=== PATIENT | male | born 1990 | race Caucasian/White ===

== ENCOUNTER → 2017-03-19 | Outpatient (CLI) | payer OTHER ==
[~2017-03-19] MED LIST: ACET-1256 PO; CREAPOW7 PO; MULT-513 PO; OMEG10007 PO; PROT1POW PO; [UNRECOGNIZED DRUG - OTHER] PO; [UNRECOGNIZED DRUG - OTHER] PO
== END | disposition home or self-care (01) ==
LOC: C.LAB 04:05
DX: Z02.83 Encounter for blood-alcohol and blood-drug test (principal)

== ENCOUNTER 2017-05-26 21:40 | Emergency (ER) | payer OTHER ==
[~2017-05-26] VITALS: Ht 177.8 cm; Wt 120.7 kg
[~2017-05-26 21:40] MED LIST changes: -ACET-1256 PO
[2017-05-26 21:42] VITALS: TEMP 36.8; Ht 177.8 cm; Wt 120.7 kg
[2017-05-26] MEDS ORDERED: NAPROXEN 250 MG TAB PO STA (22:02)
[2017-05-26] MEDS ORDERED: ACET-1256 PO (22:14)
--- NOTE | 2017-05-26 22:22 | DIAGNOSTIC IMAGING REPORT ---
RIGHT KNEE 3 VIEWS CLINICAL HISTORY: 26 years-old Male presenting with pain, right Right. TECHNIQUE: Frontal, lateral, and sunrise views of the right knee were obtained. COMPARISON: None. FINDINGS: No acute fracture or malalignment. Knee joint effusion suspected. No degenerative change. IMPRESSION: No acute osseous injury of the right knee. Knee joint effusion. Electronically signed by: Robert Prince M.D. 05/26/2017 10:20 PM Dictated Date/Time: 05/26/2017 10:19 PM
[2017-05-26 22:38] VITALS: BP 128/74; PULSE 72; O2SAT 97
--- NOTE | 2017-05-26 22:44 | EMERGENCY ROOM VISIT NOTE ---
ED Visit Note First contact with patient: 21:59 CHIEF COMPLAINT: knee pain HISTORY OF PRESENT ILLNESS: This 26 yo patient presents to the emergency department with mother after sustaining an injury to the right knee the other night when he was drinking. Patient states is not sure exactly what happened but the pain started then. The patient denies any other injuries besides their knee. The patient complains of minimal medial swelling without bruising. There is pain medial aspect. They rate the pain as throbbing and 5/10. The patient states they are able to walk on it. No numbness or tingling. No previous injuries to this knee. No ankle, foot or hip pain. REVIEW OF SYSTEMS: A 6 system review of systems was completed with positives and pertinent negatives listed in the HPI. ALLERGIES: none MEDICATIONS: none PMH: none SOCIAL HISTORY: no drug use PHYSICAL EXAM: Vital Signs: Reviewed Nurse's notes, vital signs stable. GENERAL : pleasant male, no acute distress, but appears in pain, well-developed, well- nourished. MENTAL STATUS: Alert, oriented to person place and time, and cooperative. MUSCULOSKELETAL: The right knee is minimally swollen. There is no ecchymosis. There is minimal joint effusion present. The patient is tender MCL. There is no joint line tenderness. The patella not subluxate. Range of motion is intact. Strength of the quads and hamstrings is 5/5. Maria L's is neg. Loc's and Anterior Drawer tests are neg. There is no laxity with varus and valgus stressing. The foot and toes are warm and well-perfused. Dorsalis pedis pulse 2+. Sensation to pain and light touch is intact. Capillary refill less than 2 seconds. EMERGENCY DEPARTMENT COURSE: I examined the patient. X-rays of the right knee were reviewed by myself and read by radiology and reveal RIGHT KNEE 3 VIEWS CLINICAL HISTORY: 26 years-old Male presenting with pain, right Right. TECHNIQUE: Frontal, lateral, and sunrise views of the right knee were obtained. COMPARISON: None. FINDINGS: No acute fracture or malalignment. Knee joint effusion suspected. No degenerative change. IMPRESSION: No acute osseous injury of the right knee. Knee joint effusion. Electronically signed by: Robert Prince M.D. The patient has been walking on the leg with minimal difficulties. He did have minimal discomfort with overexertion and was advised to take it easy this week with his knee and if he is still symptomatic in one week and to follow-up with orthopedics or here in the ER sooner for severe pain, numbness, tingling, worsening signs or symptoms or as needed. The patient was discharged home in good condition. Differential diagnoses include sprain, strain, fracture, meniscal injury, dislocation, and other etiologies were considered. DIAGNOSIS: Right knee sprain DISCHARGE INSTRUCTIONS: As below Current/Historical Medications Scheduled PRN Acetaminophen (Tylenol), 1,000 MG PO Q6H PRN for Pain Allergies Coded Allergies: No Known Allergies (Unverified , 09/06/15) Vital Signs Date Time Temp Pulse Resp B/P (MAP) Pulse Ox O2 Delivery O2 Flow Rate FiO2 05/26/17 21:42 36.8 67 16 136/79 97 Room Air Medications Administered Medications (Trade) Dose Ordered Sig/Lito Route Start Time Stop Time Status Last Admin Dose Admin Naproxen (Naprosyn Tab) 500 mg NOW STAT PO 05/26/17 22:02 05/26/17 22:04 DC 05/26/17 22:11 500 MG Departure Information Impression Primary Impression: Sprain of knee Dispostion Home / Self-Care Condition GOOD Referrals No Doctor, Assigned (PCP) Eduardo Vasquez, Ozzie.O. Forms HOME CARE DOCUMENTATION FORM, IMPORTANT VISIT INFORMATION Patient Instructions [facility], ED Sprain Knee Additional Instructions Ibuprofen(Motrin, Advil) may be used for fever or pain. Use 600mg every six hours as needed. Take with food. Avoid using more than 2400mg in a 24 hour period. Do not use 2400mg per day for more than three consecutive days without physician direction. Prolonged inappropriate use can lead to stomach upset or ulcers. This medication can be taken if you need to drive, work, or perform activities which may be dangerous when taking narcotic pain medication. (AND/OR) Acetaminophen(Tylenol) may be used for fever or pain. Use 1000mg every six hours as needed. Avoid using more than 3000mg in a 24 hour period. This medication can be taken if you need to drive, work, or perform activities which may be dangerous when taking narcotic pain medication. Ice compresses for 20 minutes at a time four times daily for 2-3 days. Rest and elevate your injury. Continue current medications. Return to the ER immediately for any numbness, tingling, severe pain, extreme swelling in the extremity or as needed. Call Orthopedics in 5-7 days if symptoms persist to arrange follow up for your injury.
== END 2017-05-26 22:39 | disposition home or self-care (01) ==
LOC: C.EDB 21:42 → C.EDD 22:39
DX: S83.91XA Sprain of unspecified site of right knee, initial encounter (principal); X58.XXXA Exposure to other specified factors, initial encounter

== ENCOUNTER 2017-10-06 16:18 | Emergency (ER) | payer OTHER ==
[~2017-10-06] VITALS: Ht 177.8 cm; Wt 112.5 kg
[2017-10-06 16:26] VITALS: BP 127/74; PULSE 85; TEMP 36.7; O2SAT 95; Ht 177.8 cm; Wt 112.5 kg
--- NOTE | 2017-10-06 17:03 | DIAGNOSTIC IMAGING REPORT ---
R SHOULDER MIN 2 VIEWS ROUTINE HISTORY: 27 years-old Male right shoulder pain acute right shoulder pain COMPARISON: None available TECHNIQUE: 3 views of the right shoulder FINDINGS: There is no acute fracture, dislocation or significant degenerative changes. Imaged lung seay appear clear. IMPRESSION: No acute fracture or dislocation. The above report was generated using voice recognition software. It may contain grammatical, syntax or spelling errors. Electronically signed by: Wally Arnett M.D. 10/06/2017 5:02 PM Dictated Date/Time: 10/06/2017 5:00 PM
[2017-10-06] MEDS ORDERED: PRED20TA2 PO (17:56)
[2017-10-06] MEDS ORDERED: ACET-1256 PO (22:14)
--- NOTE | 2017-10-06 23:17 | EMERGENCY ROOM VISIT NOTE ---
ED Visit Note First contact with patient: 16:31 CHIEF COMPLAINT: Shoulder pain HISTORY OF PRESENT ILLNESS: This 27-year-old male patient presents to the emergency department complaining of pain in the right shoulder slowly worsening over the past 7 or 8 weeks. He does not recall a distinct injury or trauma, but was working a temporary position at the onset of symptoms that required lifting. There is no significant limitation of motion of the arm because of the pain. The pain is moderate, constant and increases with motion of the hand and arm. The patient states the pain is dull and 4/10. The patient has taken nothing for relief of the pain. No previous significant previous shoulder disease or injury. No numbness or tingling. No neck and no back pain. No chest pain or shortness of breath. No abdominal pain or nausea/vomiting. No cough. REVIEW OF SYSTEMS: A 6 system review of systems was performed with positives and pertinent negatives in the HPI. ALLERGIES: NKDA MEDICATIONS: PMH: No chronic medical disease SOCIAL HISTORY: Employed and lives locally PHYSICAL EXAM: Vital Signs: Reviewed nurse's notes, vital signs stable. GENERAL : White male, in no acute distress, but appears to be in pain, well-developed, well-nourished. MUSCULOSKELETAL: There is no deformity in the contour of the right shoulder and there are no boyd deformities noted. There is no sulcus sign. There is tenderness over the lateral shoulder. The patient's range of motion is normal. Supraspinatus strength 4/5. There is no clavicle tenderness. No tenderness of the humerus, elbow, wrist, or hand. Acquisition Analyst strength 5/5. Radial pulse 2+. NECK: No tenderness to palpation over the cervical spine. HEART: Regular rate and rhythm without murmurs gallops or rubs. LUNGS: Clear to auscultation bilaterally without wheezes, rales or rhonchi. No accessory muscle use. No retractions. NEURO: The patient is alert and oriented to person, place, and time. Normal sensation to light and sharp touch. Capillary refill less than 2 seconds. R SHOULDER MIN 2 VIEWS ROUTINE HISTORY: 27 years-old Male right shoulder pain acute right shoulder pain COMPARISON: None available TECHNIQUE: 3 views of the right shoulder FINDINGS: There is no acute fracture, dislocation or significant degenerative changes. Imaged lung seay appear clear. IMPRESSION: No acute fracture or dislocation. EMERGENCY DEPARTMENT COURSE: Physical exam history were performed. Nursing notes and EMR were reviewed. The patient appears to have ongoing right shoulder pain for the past several weeks. His physical exam is fairly unremarkable. X-ray was obtained and does not show acute fracture or dislocation. The patient and I had a lengthy discussion regarding options of care. He will be given a course of steroids to help with his symptoms. He is to continue [id number] anti-inflammatories. He was otherwise invited back to the ER and given information for orthopedic follow-up. Current/Historical Medications Scheduled Prednisone (Prednisone Tab), 0 PO DAILY Scheduled PRN Acetaminophen (Tylenol), 1,000 MG PO Q6H PRN for Pain Allergies Coded Allergies: No Known Allergies (Unverified , 09/06/15) Vital Signs Date Time Temp Pulse Resp B/P (MAP) Pulse Ox O2 Delivery O2 Flow Rate FiO2 10/06/17 16:26 36.7 85 18 127/74 95 Room Air Departure Information Impression Primary Impression: Right shoulder pain Dispostion Home / Self-Care Condition GOOD Prescriptions Prednisone (Prednisone Tab) 20 Mg Tab 0 PO DAILY, #18 TAB 3 DAILY FOR 3 DAYS, THEN 2 DAILY FOR 3 DAYS, THEN 1 DAILY FOR 3 DAYS. Prov: Thierry Yang PA-C 10/06/17 Referrals Damir AlasDAlexO. Forms HOME CARE DOCUMENTATION FORM, IMPORTANT VISIT INFORMATION Patient Instructions My [facility] Additional Instructions You were seen and evaluated today on an emergency basis only. This is not a substitute for, or an effort to provide, complete comprehensive medical care. It is not possible to recognize and treat all injuries or illnesses in a single emergency department visit. For this reason it is recommended that you followup with [facility], Dr Alas's office, if symptoms persist. Take prednisone as prescribed. For baseline pain relief you may alternate ibuprofen and acetaminophen every 4 hours for pain control. Take 600 mg ibuprofen (Advil) and then 4 hours later take 1000 mg acetaminophen (Tylenol). Do not take more than 3000 mg acetaminophen in a single day. You are welcome to return to the emergency department anytime with new, worsening, or concerning symptoms.
== END 2017-10-06 18:07 | disposition home or self-care (01) ==
LOC: C.EDB 16:19 → C.EDD 18:07
DX: M25.511 Pain in right shoulder (principal)